=== PATIENT | female | born 1965 | race African-American/Black ===

== ENCOUNTER 2017-04-19 14:17 | Emergency (ER) | payer SELFPAY ==
[~2017-04-19] VITALS: Ht 167.6 cm; Wt 77.3 kg
[2017-04-19 15:34] LABS: BLOOD UREA NITROGEN 20 mg/dL (7-18)
[2017-04-19 15:39] LABS: IS PT STATUS REG ER OR PRE ER? YES
[2017-04-19] MEDS ORDERED: POTASSIUM CHLORIDE 20 MEQ TAB.ER.PRT PO ONE (16:00)
[2017-04-19] MEDS ORDERED: POTASSIUM CHLORIDE 20 MEQ TAB.ER.PRT ONE (16:32)
[2017-04-19 16:59] VITALS: BP 157/94
== END 2017-04-19 17:43 | disposition home or self-care (01) ==
LOC: ED 16:57
DX: H35.039 Hypertensive retinopathy, unspecified eye (principal); E87.6 Hypokalemia; I10 Essential (primary) hypertension
CPT/HCPCS: 36415; 70450; 80048; 82040; 84484; 85025; 93005; 99285

== ENCOUNTER 2017-09-21 22:51 | Emergency (ER) | payer OTHER ==
[2017-09-21] MEDS ORDERED: AMLO10TA2 PO (23:05)
[2017-09-21] MEDS ORDERED: HYDR12.53 PO (23:05)
[2017-09-21] MEDS ORDERED: METO25TA35 PO (23:06)
[2017-09-21] MEDS ORDERED: VENL37.52 PO (23:07)
[2017-09-21] MEDS ORDERED: ZOLP-413 PO (23:07)
== END 2017-09-21 22:58 ==
LOC: ED 22:52 → MERGE 22:52 → ED 22:58
DX: Z02.9 Encounter for administrative examinations, unspecified (principal)

== ENCOUNTER 2017-09-21 22:55 | Emergency (ER) | payer MEDICARE ==
[~2017-09-21] VITALS: Ht 167.6 cm; Wt 81.0 kg
[2017-09-21] MEDS ORDERED: HYDR12.53 PO (23:05)
[2017-09-21] MEDS ORDERED: AMLO10TA2 PO (23:05)
[2017-09-21] MEDS ORDERED: METO25TA35 PO (23:06)
[2017-09-21] MEDS ORDERED: ZOLP-413 PO (23:07)
[2017-09-21] MEDS ORDERED: VENL37.52 PO (23:07)
[2017-09-22 00:09] LABS: BASOPHILS # (AUTO) 0.02 x10^3/uL (0-0.1); BASOPHILS % (AUTO) 0 % (0-1); EOSINOPHILS # (AUTO) 0.16 x10^3/uL (0-0.4); EOSINOPHILS % (AUTO) 3 % (1-7); LYMPHOCYTES # (AUTO) 2.01 x10^3/uL (1-3.4); LYMPHOCYTES % (AUTO) 38 % (22-44); MD NO; MEAN CORPUSCULAR HEMOGLOBIN 29.3 pg (27.0-34.8); MEAN CORPUSCULAR HGB CONC 34.2 g/dL (32.4-35.8); MEAN CORPUSCULAR VOLUME 85.6 fL (80-100); MEAN PLATELET VOLUME 9.4 fL (7.4-10.4); MONOCYTES # (AUTO) 0.54 x10^3/uL (0.2-0.8); MONOCYTES % (AUTO) 10 % (2-9); NEUTROPHILS # (AUTO) 2.52 x10^3/uL (1.8-6.8); NEUTROPHILS % (AUTO) 48 % (42-75); PLATELET COUNT 199 x10^3/uL (130-400); RED BLOOD COUNT 4.66 x10^6/uL (3.82-5.3); RED CELL DISTRIBUTION WIDTH 12.4 % (9.6-15.2)
[2017-09-22 00:21] LABS: ANION GAP 8 mmol/L (5-15); CALCIUM 8.4 mg/dL (8.5-10.1); CHLORIDE 107 mmol/L (98-107); CREATININE 0.74 mg/dL (0.55-1.02)
[2017-09-22 00:25] LABS: CREATINE KINASE, TOTAL 104 U/L (26-192); TROPONIN I < 0.015 ng/mL (0.000-0.045)
[2017-09-22] MEDS ORDERED: POTASSIUM CHLORIDE 20 MEQ TAB.ER.PRT PO ONE (00:30)
[2017-09-22] MEDS ORDERED: POTASSIUM CHLORIDE 20 MEQ TAB.ER.PRT ONE (00:32)
[2017-09-22 03:07] VITALS: BP 178/111
== END 2017-09-22 03:09 | disposition home or self-care (01) ==
LOC: ED 23:16
DX: T58.11XA Toxic effect of carbon monoxide from utility gas, accidental (unintentional), initial encounter (principal); Y92.89 Other specified places as the place of occurrence of the external cause
CPT/HCPCS: 36415; 36600; 80048; 82375; 82550; 82803; 84484; 85025; 93005; 99285

== ENCOUNTER → 2018-07-28 | Outpatient (CLI) | payer MEDICARE ==
[~2018-07-28] MED LIST: AMLO10TA6 PO; HYDR12.53 PO; METO25TA35 PO; VENL37.52 PO; ZOLP-413 PO
== END | disposition home or self-care (01) ==
LOC: CFH 12:20
PROVIDERS: ATTEND Nurse Practitioner Primary Care
DX: M25.552 Pain in left hip (principal)